=== PATIENT | male | born 1930 | race Caucasian/White ===

== ENCOUNTER 2017-02-04 06:23 | Day surgery (SDC) | payer MEDICARE, OTHER ==
[~2017-02-04 06:23] MED LIST: ceFAZolin 2 GM in Premix Bag 1 BAG IV ONE
[2017-02-04] MEDS ORDERED: Bupivacaine 25%/EPINEPHrine/PF 30 ML ONE (07:22)
--- NOTE | 2017-02-04 07:35 | PCM.PREANE ---
Preanesthetic Assessment - Anesthesia/Transfusion/Family Hx Anesthesia History: Prior Anesthesia Reaction Other Type of Anesthesia Reaction Comment: was told in [place] to never be intubated again Family History of Anesthesia Reaction: No Transfusion History: No Prior Transfusion(s) Intubation History: Unknown - Review of Systems General: No Symptoms Pulmonary: No Symptoms Cardiovascular: Dyspnea on Exertion Gastrointestinal: No Symptoms Neurological: No Symptoms Other: Reports: None - Physical Assessment O2 Sat by Pulse Oximetry: 94 Respiratory Rate: 16 Vital Signs: Last Vital Signs Temp 36.1 C 02/04/17 06:39 Pulse 48 L 02/04/17 06:39 Resp 16 02/04/17 06:39 BP 188/87 H 02/04/17 06:39 Pulse Ox 94 L 02/04/17 06:39 Height: 1.83 m Weight: 108.862 kg ASA Class: 3 Mental Status: Alert & Oriented x3 Airway Class: Mallampati = 2 Dentition: Reports: Dentures (upper) Thyro-Mental Finger Breadths: 3 Mouth Opening Finger Breadths: 3 ROM/Head Extension: Limited/Partial Lungs: Clear to Auscultation, Normal Respiratory Effort, Decreased Breath Sounds (on right side) Cardiovascular: Regular Rate, Regular Rhythm - Allergies Allergies/Adverse Reactions: Allergies Allergy/AdvReac Type Severity Reaction Status Date / Time No Known Allergies Allergy Verified 02/03/17 08:03 - Blood Blood Available: No - Anesthesia Plan Pre-Op Medication Ordered: None - Acknowledgements Anesthesia Type Planned: General Anesthesia Pt an Appropriate Candidate for the Planned Anesthesia: Yes Alternatives and Risks of Anesthesia Discussed w Pt/Guardian: Yes Pt/Guardian Understands and Agrees with Anesthesia Plan: Yes PreAnesthesia Questionnaire HEENT History: Reports: Hard of Hearing Other HEENT History: wears glasses, has 1 hearing aide, has upper denture Cardiovascular History: Reports: High Cholesterol, Hypertension, SOB on Exertion , Stents Respiratory History: Reports: COPD, Intubation, Previous, Sleep Apnea, Other ( See Below) Other Respiratory History: 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 uses Albuterol inhaler 2-3 x per day Musculoskeletal History: Reports: Arthritis, Fracture Other Musculoskeletal History: hx of fx right leg Psychiatric History: Reports: Other (See Below) Other Psychiatric History: daughter states he is "forgetful" Endocrine/Metabolic History: Reports: Obesity/BMI 30+ - Past Surgical History Head Surgeries/Procedures: Reports: None Cardiovascular Surgical History: Reports: Coronary Artery Stent Other Cardiovascular Surgeries/Procedures: 1 stent placed in RCA for symptoms many years ago ('09), denies chest pain currently Musculoskeletal Surgical History: Reports: Knee Replacement Other Musculoskeletal Surgeries/Procedures:: right TKA - SUBSTANCE USE Smoking Status *Q: Former Smoker (quit more than 40 years ago) Recreational Drug Use History: No - HOME MEDS Home Medications: Home Meds Albuterol [IJD: Albuterol HFA] 1 puff INH ASDIRECTED PRN 02/03/17 [History] Aspirin [Adult Low Dose Aspirin EC] 81 mg PO DAILY 02/03/17 [History] Fluticasone/Salmeterol [Advair 250-50 Diskus] 1 dose INH DAILY 02/03/17 [History ] Furosemide 40 mg PO DAILY 02/03/17 [History] Lisinopril 40 mg PO DAILY 02/03/17 [History] Metoprolol Succinate [Toprol Xl] 25 mg PO QAM 02/03/17 [History] Naproxen Sodium [Aleve] 440 mg PO QAM 02/03/17 [History] Rosuvastatin Calcium 20 mg PO DAILY 02/03/17 [History] - CURRENT (IN HOUSE) MEDS Current Meds: Current Medications Bupivacaine HCl/Epinephrine Bitart (Marcaine 0.25%/Epinephrine 1:200,000) 10 ml INJECT ONETIME ONE Stop: 02/04/17 17:42 Lactated Ringer's (Ringers, Lactated) 1,000 mls @ 125 mls/hr IV ASDIRECTED FRANCISCA Tramadol HCl (Ultram) 50 mg PO Q4H PRN PRN Reason: Pain Discontinued Medications Cefazolin Sodium/Dextrose 2 gm (/ Premix) 50 mls @ 100 mls/hr IV ONETIME ONE Stop: 02/03/17 18:10 Bupivacaine HCl/Epinephrine Bitart (Sensorc Mpf 0.25%-Epi [id number]) Confirm Administered Dose 30 mls @ as directed .ROUTE .STK-MED ONE Stop: 02/04/17 07:23
[2017-02-04] MEDS ORDERED: Propofol 200 MG/20 ML SDV ONE (07:41)
[2017-02-04] MEDS ORDERED: Midazolam 1 MG/ML 2 ML SDV ONE (07:41)
[2017-02-04] MEDS ORDERED: Lidocaine 2% 5 ML SDV ONE (07:41)
[2017-02-04] MEDS ORDERED: fentaNYL 100 MCG/2 ML SDV ONE (07:41)
[2017-02-04] MEDS ORDERED: traMADol 50 MG Tab PO PRN (08:00)
[2017-02-04] MEDS ORDERED: Lactated Ringers 1,000 ML IV SCH (08:00)
[2017-02-04] MEDS ORDERED: Ketorolac 30 MG/ML SDV ONE (08:54)
[2017-02-04] MEDS ORDERED: Ondansetron 4 MG/2 ML SDV ONE (08:54)
[2017-02-04] MEDS ORDERED: Phenylephrine/Normal Saline 100 MCG/ML 10 ML Syringe ONE (09:23)
[2017-02-04] MEDS ORDERED: fentaNYL 100 MCG/2 ML SDV IVPUSH PRN (09:25)
[2017-02-04] MEDS ORDERED: Bupivacaine 0.25%/EPINEPHrine 1:200,000 10 ML SDV INJECT ONE (17:41)
--- NOTE | 2017-02-04 18:43 | OR ---
SURGEON: VIRGINIA KELLER MD DATE OF PROCEDURE: 02/04/2017 PREOPERATIVE DIAGNOSIS: Basal cell carcinoma of the nose. POSTOPERATIVE DIAGNOSIS: Basal cell carcinoma of the nose. PROCEDURES: 1. Excision of 2 x 3 cm basal cell carcinoma of the dorsum of nose. 2. Local flap closure with total area plus defect of 9 cm2. SEASONAL DRIVER: SAKINA Corona. Reason for assistant manager airside operations was prepping and draping, and retraction closure. INDICATIONS: Mr. Heath is an 86-year-old gentleman with a large nose lesion that is ulcerated and bleeding. Risks and benefits of excision were discussed with him and he was in agreement to proceed. We will use frozen section because this will necessitate top closure. PROCEDURE IN DETAIL: After informed consent was obtained and placed on the chart, the patient was brought to the operating theater and laid in supine position. After adequate local LMA, anesthesia was obtained, the area was prepped and draped and a time- out was completed to confirm side and site. Attention was then paid to infiltration of local anesthesia and once allowed to sit, he 2 x 3 cm basal cell carcinoma was excised, marked at the 12 o'clock position and sent for pathology for frozen sections. Frozen sections returned as negative and a local flap was designed for a total defect plus area of the flap of 9 cm2 in a V-Y fashion for the left nasolabial area. This was advanced easily and the distal ends were closed and trimmed. Once adequately reapproximated, deep 5-0 Monocryl stitches and a running 5-0 Prolene for the skin was used to close this. The wound was dressed with bacitracin and fluffs and tape. The patient tolerated this well. All counts and needles were correct at the end of the case. FOLLOWUP INSTRUCTIONS: The patient will see us in clinic in approximately 2 weeks. Sooner if any problems, questions, or concerns. He will take [id number] medications for pain control and call with any issues. HEGGTHE / ANDREWL /[id number]
== END 2017-02-04 11:23 | disposition home or self-care (01) ==
LOC: MW.SDS 06:23
PROVIDERS: ATTEND Plastic Surgery
DX: C44.311 Basal cell carcinoma of skin of nose (principal); E78.00 Pure hypercholesterolemia, unspecified; I10 Essential (primary) hypertension; J45.909 Unspecified asthma, uncomplicated; G47.30 Sleep apnea, unspecified; M19.90 Unspecified osteoarthritis, unspecified site; E66.9 Obesity, unspecified; Z68.32 Body mass index [BMI] 32.0-32.9, adult; Z87.891 Personal history of nicotine dependence; Z79.82 Long term (current) use of aspirin; Z79.51 Long term (current) use of inhaled steroids; Z79.899 Other long term (current) drug therapy; Z95.5 Presence of coronary angioplasty implant and graft; Z96.651 Presence of right artificial knee joint; Z98.890 Other specified postprocedural states; Z99.89 Dependence on other enabling machines and devices
CPT/HCPCS: 11643; 15732; J1885; J2250; J2405; J3010; 00300; 88305; 88331; J2704